=== PATIENT | female | born 1990 | race Caucasian/White ===

== ENCOUNTER 2016-10-21 20:13 | Emergency (ER) | payer SELFPAY ==
[~2016-10-21] VITALS: Ht 162.6 cm; Wt 123.9 kg
[2016-10-21] MEDS ORDERED: XANAX1 MG PO (20:52)
[2016-10-21 21:10] VITALS: BP 134/90
== END 2016-10-21 21:12 | disposition home or self-care (01) ==
LOC: EME 20:13
DX: F41.9 Anxiety disorder, unspecified (principal)
CPT/HCPCS: 99281; 99283